=== PATIENT | male | born 1985 | race Two or more races ===

== ENCOUNTER 2017-06-30 10:46 | Emergency (ER) | payer MEDICAID ==
[~2017-06-30] VITALS: Ht 160 cm; Wt 81.6 kg
[2017-06-30 11:07] VITALS: BP 138/79; Ht 160 cm; Wt 81.6 kg
== END 2017-06-30 13:26 | disposition home or self-care (01) ==
LOC: ED 10:46
DX: S91.312A Laceration without foreign body, left foot, initial encounter (principal); W25.XXXA Contact with sharp glass, initial encounter; Y93.89 Activity, other specified; Y92.89 Other specified places as the place of occurrence of the external cause; Y99.8 Other external cause status
CPT/HCPCS: 90715; J0690; Q0092

== ENCOUNTER 2017-07-03 09:20 | Emergency (ER) | payer MEDICAID ==
[~2017-07-03] VITALS: Ht 162.6 cm; Wt 81.6 kg
[2017-07-03 09:26] VITALS: Ht 162.6 cm; Wt 81.6 kg
[2017-07-03 12:07] VITALS: BP 140/89
== END 2017-07-03 12:07 | disposition home or self-care (01) ==
LOC: ED 09:20
DX: S81.812D Laceration without foreign body, left lower leg, subsequent encounter (principal); X58.XXXD Exposure to other specified factors, subsequent encounter

== ENCOUNTER 2017-08-18 08:40 | Emergency (ER) | payer SELFPAY ==
[~2017-08-18] VITALS: Ht 170.2 cm; Wt 80.3 kg
[2017-08-18 08:46] VITALS: Ht 170.2 cm; Wt 80.3 kg
[2017-08-18 09:36] LABS: BASOPHIL % 0.4 % (0-2); PLATELET COUNT 266 x10^3mcL (130-400); RED CELL DISTRIBUTION WIDTH 13.3 % (11.5-14.5)
[2017-08-18 09:43] LABS: AMPHETAMINE QUAL UR POSITIVE (NEG <=1000)
[2017-08-18 09:47] LABS: CALCIUM 9.1 mg/dL (8.5-10.1); CARBON DIOXIDE 25.5 mmol/L (21-32); CHLORIDE SERUM 103 mmol/L (98-107); CREATININE SERUM 0.8 mg/dL (0.7-1.3); GFR1 > 60 mL/min; GLUCOSE SERUM 113 mg/dL (74-106); POTASSIUM SERUM 3.5 mmol/L (3.5-5.1); SODIUM SERUM 140 mmol/L (136-145)
[2017-08-18 09:51] LABS: ALBUMIN 3.4 g/dL (3.4-5.0); ALKALINE PHOSPHATASE 86 U/L (46-116); ALT/SGPT 47 U/L (16-63); AMYLASE 54 U/L (25-115); AST/SGOT 25 U/L (15-37); BILIRUBIN TOTAL 0.62 mg/dL (0.20-1.00); LIPASE 76 IU/L (73-393); TOTAL PROTEIN, SERUM 7.9 g/dL (6.4-8.2)
[2017-08-18 11:02] VITALS: BP 105/55
== END 2017-08-18 11:02 | disposition home or self-care (01) ==
LOC: ED 08:40
PROVIDERS: Emergency Medicine
DX: R07.89 Other chest pain (principal); F17.210 Nicotine dependence, cigarettes, uncomplicated; Z71.6 Tobacco abuse counseling
CPT/HCPCS: 36415; 99406; G0480

== ENCOUNTER 2018-04-12 03:31 | Emergency (ER) | payer SELFPAY ==
[~2018-04-12] VITALS: Ht 167.6 cm; Wt 79.8 kg
[2018-04-12 03:33] VITALS: Ht 167.6 cm; Wt 79.8 kg
[2018-04-12 05:08] VITALS: BP 134/75
== END 2018-04-12 05:08 | disposition home or self-care (01) ==
LOC: ED 03:31
DX: R51 Headache (principal); R09.81 Nasal congestion; R05 Cough; R11.2 Nausea with vomiting, unspecified
CPT/HCPCS: J1885; Q0162